=== PATIENT | male | born 1940 | race Caucasian/White ===

== ENCOUNTER 2016-10-17 16:15 | Emergency (ER) | payer MEDICARE, BC ==
[2016-10-17] MEDS ORDERED: Morphine 2 MG/ML Syringe IM ONE (16:47)
[2016-10-17] MEDS ORDERED: Morphine 2 MG/ML Syringe IVPUSH ONE (16:51)
--- NOTE | 2016-10-17 17:01 | EDM.PDOC ---
ED HPI GENERAL MEDICAL PROBLEM - General Chief Complaint: Back Pain or Injury Stated Complaint: TRAUMA VIA NORTH- BACK INJURY Time Seen by Provider: 10/17/16 16:40 Source of Information: Reports: Patient, EMS, Family History Limitations: Reports: No Limitations - History of Present Illness INITIAL COMMENTS - FREE TEXT/NARRATIVE: Patient presents via EMS with complaints of mid-back pain after fall off of his dock today. Mr. Merchant states he went to step on his boat from the dock, the boat moved and he fell back striking his mid-back on the dock. Onset: Today, Sudden Location: Reports: Other (upper back, left upper and lower abdomen. 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 ) Lower Back Pain Score (Numeric/FACES): 10 - Related Data Allergies Allergy/AdvReac Type Severity Reaction Status Date / Time aspirin Allergy Cannot Verified 10/17/16 16:26 Remember Sulfa (Sulfonamide Allergy Cannot Verified 10/17/16 16:26 Antibiotics) Remember Home Meds: Home Meds Acetaminophen/oxyCODONE [Take Home: Acetaminophen/oxyCODON, 2 Tab Pack] [History] Albuterol/Ipratropium [DuoNeb 3.0-0.5 MG/3 ML] 3 ml INH ASDIRECTED 10/17/16 [ History] Brinzolamide/Brimonidine Tart [Simbrinza 1%-0.2% Eye Drops] 10/17/16 [History] FLUoxetine [PROzac] 40 mg PO DAILY 10/17/16 [History] Fluticasone/Vilanterol [Breo Ellipta 200-25 Mcg INH] 2 puff INH ASDIRECTED 10/17 [History] LORazepam [LORazepam] 0.5 mg PO ASDIRECTED PRN 10/17/16 [History] QUEtiapine [SEROquel] 200 mg PO DAILY 10/17/16 [History] Ranitidine [Zantac] 150 mg PO DAILY 10/17/16 [History] amLODIPine Besylate [Amlodipine Besylate] 10 mg PO DAILY 10/17/16 [History] atorvaSTATin [Lipitor] 20 mg PO DAILY 10/17/16 [History] predniSONE [Take Home: predniSONE 20 MG, 2 Tab Pack] 5 mg PO DAILY 10/17/16 [ History] Past Medical History - Past Health History Medical/Surgical History: Denies Medical/Surgical History HEENT History: Reports: Impaired Vision, Other (See Below) Other HEENT History: right detached retna Cardiovascular History: Reports: High Cholesterol, Hypertension Respiratory History: Reports: COPD, Sleep Apnea - Infectious Disease History Infectious Disease History: Reports: Chicken Pox - Past Surgical History HEENT Surgical History: Reports: Laser Surgery Other HEENT Surgeries/Procedures: nasal surgery Musculoskeletal Surgical History: Reports: Other (See Below) Other Musculoskeletal Surgeries/Procedures:: Spin fused from athritis Social & Family History - Tobacco Use Smoking Status *Q: Never Smoker - Caffeine Use Caffeine Use: Reports: None - Alcohol Use Alcohol Use History: Yes Alcohol Use in Last Twelve Months: Yes Alcohol Use Frequency: Socially Alcohol Use Comment: Patient drinks socially on a weekly basis, usual drink of choice is vodka or scotch. - Recreational Drug Use Recreational Drug Use: No ED ROS GENERAL - Review of Systems Review Of Systems: See Below Constitutional: Reports: Diaphoresis, Other (Reports one scotch drink today. Yesterday multiple drinks of alcohol. ). Denies: Fever, Chills HEENT: Reports: No Symptoms Respiratory: Reports: Shortness of Breath, Wheezing. Denies: Cough Cardiovascular: Reports: Other (Uses CPAP at night, history of COPD). Denies: Chest Pain, Blood Pressure Problem, Dyspnea on Exertion, Edema, Lightheadedness , Orthopnea, Palpitations, PND Endocrine: Reports: No Symptoms GI/Abdominal: Reports: Abdominal Pain, Other (Complains of pain to LUQ and LLQ - most with palpation. ). Denies: Constipation, Diarrhea, Distension, Nausea, Vomiting : Reports: No Symptoms Musculoskeletal: Reports: Other (Mid-back pain at level T9-to T-12) Skin: Reports: Diaphoresis, Bruising, Other (Ecchymosis to LLQ - patient reports this happened yesterday. ). Denies: Cyanosis, Jaundice, Mottled, Pallor , Rash, Erythema, Wound Neurological: Reports: Other (Denies change in sensation to lower extremities and peroneal area. ). Denies: Confusion, Headache, Numbness, Tingling, Tremors , Gait Disturbance Psychiatric: Reports: Agitation, Anxiety Hematologic/Lymphatic: Reports: No Symptoms Immunologic: Reports: No Symptoms ED EXAM, UPPER BACK/NECK PAIN - Physical Exam Exam: See Below Exam Limited By: No Limitations General Appearance: Alert, WD/WN Eye Exam: Bilateral Eye: Normal Inspection, PERRL (3mm) Ears Exam: Normal External Exam, Normal Canal, Hearing Grossly Normal, Normal TMs Nose Exam: Normal Inspection, Normal Mucousa, No Blood Throat/Mouth Exam: Normal Inspection, Normal Lips, Normal Teeth, Normal Gums, Normal Oropharynx, Normal Voice, No Airway Compromise Head Exam: Atraumatic, Normocephalic Neck Exam: Non-Tender, Normal Alignment, Normal Inspection, Other (Limited ROM due to previous fracture and spondylosis) Nexus Criteria: No: Posterior, Midline Cervical Tenderness, Evidence of Intoxication, Altered Level of Consciousness, Focal Neurological Deficit Cardiovascular/Respiratory: Normal Peripheral Pulses GI/Abdominal: Soft, No Organomegaly, Tender, Abnormal Bowel Sounds, Other ( Large obese abdomen, small area of echhymosis to LLQ, pain with palpation to LLQ , LUQ. ) Back Exam: Paraspinal Tenderness, Vertebral Tenderness, Other (T9-T12 pain, abrasion, tenderness, edema, distracting pain. ). No: CVA Tenderness (R), CVA Tenderness (L) Extremities: Normal Inspection, Normal Range of Motion, Non-Tender, Normal Capillary Refill, Pedal Edema, Other (Edema to knees 2+ bilateral, ecchymosis to right forearm, no pain with palpation. ) Neurologic: No Motor/Sensory Deficits, Alert, Oriented x 3, Other (Anxious, yelling out in pain frequently) Psychiatric: Anxious Skin Exam: Normal Color, Diaphoresis Lymphatic: No Adenopathy EKG INTERPRETATION EKG Date: 10/17/16 Time: 17:12 Rhythm: NSR Ha[place]ler: normal P-wave: present QRS: normal ST-T: normal QT: normal Course - Vital Signs Last Recorded V/S: Last Vital Signs Temp 35.8 C 10/17/16 18:37 Pulse 105 H 10/17/16 18:37 Resp 24 H 10/17/16 18:37 BP 169/97 H 10/17/16 18:48 Pulse Ox 94 L 10/17/16 18:37 - Orders/Labs/Meds Orders: Active Orders 24 hr Category Date Time Status EKG Documentation Completion [RC] ASDIRECTED Care 10/17/16 17:06 Active Engel Catheter Insertion [Insert Urinary Catheter] [OM. Care 10/17/16 18:45 Ordered PC] Q24H Insert Engel Catheter [Insert Urinary Catheter] [OM.PC] Care 10/17/16 19:00 Ordered Q24H Urinary Catheter Assessment [RC] ASDIRECTED Care 10/17/16 18:41 Active Urinary Catheter Assessment [RC] ASDIRECTED Care 10/17/16 18:59 Active Chest Abdomen Pelvis w Cont [CT] Stat Exams 10/17/16 16:44 Taken EKG 12 Lead [EK] Routine Ther 10/17/16 17:06 Ordered Labs: Laboratory Tests 10/17/16 10/17/16 10/17/16 Range/Units 16:57 16:57 16:57 WBC 21.1 H (4.5-11.0) K/uL RBC 4.13 L (4.30-5.90) M/uL Hgb 14.1 (12.0-15.0) g/dL Hct 41.2 (40.0-54.0) % MCV 100 H (80-98) fL MCH 34 H (27-31) pg MCHC 34 (32-36) % Plt Count 197 (150-400) K/uL Neut % (Auto) 84 H (36-66) % Lymph % (Auto) 8 L (24-44) % [place] % (Auto) 8 H (2-6) % Eos % (Auto) 0 L (2-4) % Baso % (Auto) 0 (0-1) % Sodium 140 (140-148) mmol/L Potassium 3.9 (3.6-5.2) mmol/L Chloride 105 (100-108) mmol/L Carbon Dioxide 24 (21-32) mmol/L Anion Gap 11.1 (5.0-14.0) mmol/L BUN 22 H (7-18) mg/dL Creatinine 1.1 (0.7-1.3) mg/dL Est Cr Clr Drug Dosing 58.99 mL/min Estimated GFR (MDRD) > 60 (>60) BUN/Creatinine Ratio Not Reportable Glucose 137 H (74-106) mg/dL Calcium 8.2 L (8.5-10.1) mg/dL Total Bilirubin 1.1 H (0.2-1.0) mg/dL AST 27 (15-37) U/L ALT 66 (12-78) U/L Alkaline Phosphatase 56 (46-116) U/L Total Protein 6.5 (6.4-8.2) g/dL Albumin 3.2 L (3.4-5.0) g/dL Globulin 3.3 (2.3-3.5) g/dL Albumin/Globulin Ratio 1.0 L (1.2-2.2) Ethyl Alcohol 4 mg/dL Meds: Medications Discontinued Medications Generic Name Dose Route Start Last Admin Trade Name Freq PRN Reason Stop Dose Admin Furosemide 40 mg 10/17/16 17:04 10/17/16 18:48 Lasix IVPUSH 10/17/16 17:05 40 mg ONETIME ONE Administration Hydromorphone HCl 1 mg 10/17/16 18:14 10/17/16 18:19 Dilaudid IVPUSH 10/17/16 18:15 1 mg ONETIME ONE Administration Hydromorphone HCl 1 mg 10/17/16 18:42 10/17/16 18:47 Dilaudid IVPUSH 10/17/16 18:43 1 mg ONETIME ONE Administration Sodium Chloride 90 mls @ 3.5 mls/sec 10/17/16 17:45 10/17/16 17:55 Normal Saline IV 3.5 mls/sec ASDIRECTED DONALD Administration Sodium Chloride 1,000 mls @ 125 mls/hr 10/17/16 18:15 10/17/16 18:31 Normal Saline IV 125 mls/hr ASDIRECTED DONALD Administration Iopamidol 150 ml 10/17/16 17:33 10/17/16 17:55 Isovue-300 (61%) IV 10/18/16 17:34 150 ml . DIRECTED PRN Administration RADIOLOGY EXAM Lidocaine HCl 10 ml 10/17/16 18:41 10/17/16 18:48 Xylocaine 2% Jelly MUCMEM 10/17/16 18:42 10 ml ONETIME ONE Administration Lidocaine HCl Confirm 10/17/16 18:40 Xylocaine 2% Jelly Administered 10/17/16 18:41 Dose 10 ml .ROUTE .STK-MED ONE Lorazepam 1 mg 10/17/16 17:13 10/17/16 17:18 Ativan IVPUSH 10/17/16 17:14 1 mg ONETIME ONE Administration Lorazepam 1 mg 10/17/16 17:49 10/17/16 17:59 Ativan IVPUSH 10/17/16 17:50 1 mg ONETIME ONE Administration Morphine Sulfate 2 mg 10/17/16 16:51 10/17/16 16:55 Morphine IVPUSH 10/17/16 16:52 2 mg ONETIME ONE Administration Sodium Chloride 10 ml 10/17/16 17:33 10/17/16 17:55 Saline Flush FLUSH 10/17/16 17:34 10 ml ONETIME ONE Administration - Radiology Interpretation Free Text/Narrative:: CT scan reviewed by Dr. Alfaro, Ruptured anterior ligament with anterior displacement of the proximal vetebral body at T12 (T11). Dr. Nolan [facility], accepts patient. CT Results Date: 10/17/16 (Irregular nodular opacity in the left lower lobe could represent a component of atelectasis or contusion, however, primary neoplasm or metastasis is not excluded. There are multiple additional bilateral noncalcified subcentimeter pulmonary nodules. Further work-up of these findings is recommended when clinically appropriate. No evidence of solid abdominal organ injury. Distraction type fracture through the rigid spine at the T11/T12 disk space with extension into the posterior elements, associated disruption of the anterior posterior longitudinal ligaments and approximately 7mm of anterolisthesis of T11 on T12. A small amount of ventral epidural hematoma may be present but is suboptimally evaluated on study. No critical bony central canal compromise. Right L1 and left L2 transverse process fractures. ) - Re-Assessments/Exams Free Text/Narrative Re-Assessment/Exam: 10/17/16 17:18 Patient continues to complain of uncontrolled pain. mammography tech on the way. Lorazepam ordered. Free Text/Narrative Re-Assessment/Exam: 10/17/16 18:[address] Alfaro, waiting for official report. Free Text/Narrative Re-Assessment/Exam: 10/17/16 18:34 Additional dilaudid administerd, Pain now 410. CMS,neuro status intact. CT scan reviewed by Dr. Alfaro and patient family. Patient will be transfered via Air to [place] for neurosurgery. Engel will be placed. Departure - Departure Time of Disposition: 18:15 Disposition: DC/Tfer to Acute Hospital 02 Condition: serious Clinical Impression: T12 vertebral fracture, Closed T11 spinal fracture, Traumatic epidural hematoma , Anterolisthesis - Discharge Information Referrals: PCP,None [Primary Care Provider] - Forms: ED Department Discharge - My Orders Last 24 Hours: My Active Orders 10/17/16 16:44 Chest Abdomen Pelvis w Cont [CT] Stat 10/17/16 17:06 EKG Documentation Completion [RC] ASDIRECTED EKG 12 Lead [EK] Routine 10/17/16 18:41 Urinary Catheter Assessment [RC] ASDIRECTED 10/17/16 18:45 Engel Catheter Insertion [Insert Urinary Catheter] [OM.PC] Q24H 10/17/16 18:59 Urinary Catheter Assessment [RC] ASDIRECTED 10/17/16 19:00 Insert Engel Catheter [Insert Urinary Catheter] [OM.PC] Q24H - Assessment/Plan Last 24 Hours: My Active Orders 10/17/16 16:44 Chest Abdomen Pelvis w Cont [CT] Stat 10/17/16 17:06 EKG Documentation Completion [RC] ASDIRECTED EKG 12 Lead [EK] Routine 10/17/16 18:41 Urinary Catheter Assessment [RC] ASDIRECTED 10/17/16 18:45 Egnel Catheter Insertion [Insert Urinary Catheter] [OM.PC] Q24H 10/17/16 18:59 Urinary Catheter Assessment [RC] ASDIRECTED 10/17/16 19:00 Insert Engel Catheter [Insert Urinary Catheter] [OM.PC] Q24H Assessment:: Trauma to T11/T12 Fall striking back on solid deck today at 1430 Last PO intake 1400 Fracture through rigid spine at the T11/T12 disk space with extension into the posterior elements, associated disruption of the anterior posterior longitudinal ligaments and approximately 7mm of anterolisthesis of T11 on T12. A small amount of ventral epidural hematoma may be present but is suboptimally evaluated on study. No critical bony central canal compromise. Right L1 and left L2 transverse process fractures CMS intack with full sensation to all extremities at time of departure. Plan: Patient transported via air to [place] for emergent neurosurgery care and continuity of care. Patient accepted per Dr. Nolan. Patient also followed by pulmonology in [place]. Family and patient in agreement with plan. Lab work and imaging reviewed with patient and family.
[2016-10-17] MEDS ORDERED: Furosemide 40 MG/4 ML VIAL IVPUSH ONE (17:04)
[2016-10-17] MEDS ORDERED: LORazepam 2 MG/ML MDV IVPUSH ONE ×2 (17:13→17:49)
[2016-10-17] MEDS ORDERED: Iopamidol 612 MG/ML 150 ML Bottle IV PRN (17:33)
[2016-10-17] MEDS ORDERED: Sodium Chloride 0.9% 10 ML Syringe FLUSH ONE (17:33)
[2016-10-17] MEDS ORDERED: Sodium Chloride 0.9% 90 ML IV SCH (17:45)
[2016-10-17] MEDS ORDERED: HYDROmorphone 1 MG/ML Syringe IVPUSH ONE ×2 (18:14→18:42)
[2016-10-17] MEDS ORDERED: Sodium Chloride 0.9% 1,000 ML IV SCH (18:15)
[2016-10-17] MEDS ORDERED: Lidocaine 2% Jelly 10 ML Urojet ONE (18:40)
[2016-10-17] MEDS ORDERED: Lidocaine 2% Jelly 10 ML Urojet MUCMEM ONE (18:41)
[2016-10-17 18:42] VITALS: BP 169/97
== END 2016-10-17 19:02 ==
LOC: JP.ED 16:15
DX: S22.089A Unspecified fracture of T11-T12 vertebra, initial encounter for closed fracture (principal); S06.4X0A Epidural hemorrhage without loss of consciousness, initial encounter; M43.10 Spondylolisthesis, site unspecified; I10 Essential (primary) hypertension; E78.00 Pure hypercholesterolemia, unspecified; J44.9 Chronic obstructive pulmonary disease, unspecified; Z98.890 Other specified postprocedural states; Z79.899 Other long term (current) drug therapy; Z88.2 Allergy status to sulfonamides; Z88.8 Allergy status to other drugs, medicaments and biological substances; W17.89XA Other fall from one level to another, initial encounter
CPT/HCPCS: 36415; 51702; 71260; 74177; 80053; 85025; 93005; 96361; 96374; 96375; 99285; G0480; J1170; J1940; J2060; J2270; J7030; J7040; J7050; 93010; 96372